=== PATIENT | male | born 1985 | race African-American/Black ===

== ENCOUNTER → 2018-04-04 | Outpatient (CLI) | payer OTHER ==
[2018-04-05 08:09] LABS: RUBEOLA (MEASLES) IGG <25.0 AU/mL (Immune >29.9)
== END | disposition home or self-care (01) ==
LOC: EMPHLTH 13:07
PROVIDERS: ATTEND Internal Medicine
DX: Z02.1 Encounter for pre-employment examination (principal)
CPT/HCPCS: 86706; 86735; 86762; 86765; 86787

== ENCOUNTER 2019-03-14 20:32 | Emergency (ER) | payer BC, OTHER ==
[~2019-03-14] VITALS: Ht 180.3 cm; Wt 79.5 kg
[2019-03-14] MEDS ORDERED: FOLI1 PO (20:43)
[2019-03-14] MEDS ORDERED: HYDR500C2 PO (20:43)
[2019-03-14] MEDS ORDERED: OXYC-601 PO (20:43)
[2019-03-14] MEDS ORDERED: ONDANSETRON HCL 4 MG/2 ML VIAL IVP ONE ×2 (20:45→22:15)
[2019-03-14] MEDS ORDERED: MORPHINE SULFATE 4 MG/ML SYRINGE IVP ONE ×3 (20:45→23:45)
[2019-03-14] MEDS ORDERED: ASPIRIN 81 MG CHEWABLE TABLET PO ONE (20:45)
[2019-03-14] MEDS ORDERED: SODIUM CHLORIDE 0.9% 1,000 ML IV ONE ×2 (20:45→22:30)
[2019-03-14 21:29] LABS: ANION GAP 6 mmol/L (8-16); CALCIUM, TOTAL 8.8 mg/dL (8.8-10.5); CARBON DIOXIDE 29 mmol/L (22-29); CHLORIDE 103 mmol/L (98-107); CREATININE 0.59 mg/dL (0.60-1.30); GLOMERULAR FILTR. RATE CALC > 60 mL/min (>60); GLUCOSE,RANDOM 105 mg/dL (70-110); POTASSIUM 3.6 mmol/L (3.5-5.1); SODIUM SERUM 138 mmol/L (136-145); UREA NITROGEN, BLOOD 8 mg/dL (7-18)
[2019-03-14 21:30] LABS: HEMATOCRIT 27.9 % (41-53); HEMOGLOBIN 9.8 g/dL (13.5-17.5); MEAN CORPUSCULAR HEMOGLOBIN 32.4 pg (26.0-34.0); MEAN CORPUSCULAR VOLUME 93 fL (80-100); PLATELET COUNT (AUTO) 381 K/uL (150-450); RED BLOOD CELL COUNT(AUTO) 3.01 MIL/uL (4.50-5.90); RED CELL DISTRIBUTION WIDTH 20.6 % (11.5-14.5)
[2019-03-14 21:35] LABS: ALANINE AMINOTRANSFERASE 7 U/L (12-78); ALBUMIN 4.6 g/dL (3.4-5.0); ALKALINE PHOSPHATASE 73 U/L (46-116); ASPARTATE AMINOTRANSFERASE 17 U/L (15-37); BILIRUBIN,TOTAL 3.2 mg/dL (0.1-1.0); CREATINE KINASE, TOTAL ONLY 49 U/L (39-308)
[2019-03-14 21:54] LABS: B-TYPE NATRIURETIC PEPTIDE 29 pg/mL (0-100)
[2019-03-14 22:16] LABS: BAND NEUTROPHILS % (MANUAL) 0 % (0-5)
[2019-03-14 22:34] LABS: BASOPHILS % (MANUAL) 1 % (0-2); EOSINOPHILS % (MANUAL) 7 % (1-6); LYMPHOCYTES % (MANUAL) 21 % (22-44); MONOCYTES % (MANUAL) 11 % (2-9); SEGMENTED NEUTROPHILS % 60 % (40-70)
[2019-03-14 22:35] LABS: WBC MORPHOLOGY TOXIC VACUOLATION
[2019-03-14] MEDS ORDERED: AZITHROMYCIN 500 MG/NS 250 ML IV ONE (23:00)
[2019-03-14] MEDS ORDERED: CefTRIAXone 1 GM/DEXTROSE 50 ML IV ONE (23:00)
[2019-03-15] MEDS ORDERED: DiphenhydrAMINE HCL 25 MG CAPSULE PO ONE (01:00)
[2019-03-15 01:15] VITALS: BP 136/77
== END 2019-03-15 01:20 | disposition left against medical advice (07) ==
LOC: EMS 20:33
DX: J18.9 Pneumonia, unspecified organism (principal); D57.00 Hb-SS disease with crisis, unspecified
CPT/HCPCS: 36415; 71045; 80053; 82550; 83615; 83880; 84484; 85025; 85045; 87040; 93005; 96365; 96367; 96375; 96376; 99285; J0456; J0696; J2270; J2405; J7030